=== PATIENT | female | born 1980 | race Caucasian/White ===

== ENCOUNTER 2016-04-09 07:09 | Emergency (ER) | payer OTHER ==
[~2016-04-09] VITALS: Ht 165.1 cm; Wt 126.0 kg
[~2016-04-09 07:09] MED LIST: IBUP800T23 PO; METH750T2 PO
[2016-04-09 07:13] VITALS: BP 122/94; PULSE 104; RESP 16; TEMP 98.1; O2SAT 100
[2016-04-09] MEDS ORDERED: TETANUS/DIPHTHERIA TOXOID ADULT 0.5 ML VIAL IM ONE (07:45)
--- NOTE | 2016-04-09 07:53 | PD ---
HPI Chief Complaint: Laceration/Skin Injury Time Seen by Provider: 07:19 Travel History International Travel<30 days: No Contact w/Intl Traveler<30days: No Traveled to known affect area: No History of Present Illness HPI This patient complains of laceration to her right hand. She accidentally cut it on a knife last night at 11 PM. She comes in this morning for evaluation. The cut is through her hyperthenar eminence. She has normal strength and sensation. Duration is 8 and half hours PFSH Past Medical History Medical History: Denies Significant Hx Diminished Hearing: No Tetanus Vaccination: > 5 Years Influenza Vaccination: No ?: Not LMP: 03/21/16 : 0 Para: 0 Past Surgical History Oral Surgery: Yes (WISDOM TEETH) Social History Alcohol Use: Yes (OCC) Tobacco Use: Yes (1/2 PPD) Substance Use: No Allergies-Medications (Allergen,Severity, Reaction): Coded Allergies: Penicillin (Verified Allergy, Severe, RASH/FACIAL SWELLING, 04/09/16) Sulfa (Verified Allergy, Severe, SWELLING, 04/09/16) SWELLING Reported Meds & Prescriptions Reported Meds & Active Scripts Active No Active Prescriptions or Reported Medications Review of Systems General / Constitutional: No: Fever HENT: No: Headaches Cardiovascular: No: Chest Pain or Discomfort Physical Exam Narrative SKIN: Inspection shows no rash or ulcers. Palpation shows no induration or nodules. Psych: Normal mood and affect. Insight and judgment seems a bit weak as detailed later Right hand: 3 cm laceration to the right hyperthenar eminence. There is some fatty tissue poking through. Normal cap refill and sensation and flexion and extension strength of the digits Data Data Last Documented VS Vital Signs Date Time Temp Pulse Resp B/P Pulse Ox O2 Delivery O2 Flow Rate FiO2 04/09/16 07:33 16 04/09/16 07:13 98.1 104 122/94 100 Orders Tetanus/Diphtheria Tox Adult (Tetanus/Di (04/09/16 07:45) Wound Care (04/09/16 07:33) MDM Medical Decision Making Medical Screen Exam Complete: Yes Emergency Medical Condition: Yes Medical Record Reviewed: Yes Differential Diagnosis Laceration, abrasion, contusion Narrative Course I have reviewed the patient's electronic medical record. I gave this patient a tetanus booster I cleaned her laceration Patient absolutely refuses suturing. I recommended to loosely close it given that it's been open for a half hours already but it is fairly gaping with fat tissue poking through and she absolutely refuses She says she has a fear of needles and despite multiple attempts to convince her she refuses Mother is present at bedside and was trying to get her to agree but she did not succeed either So rather than leave it gaping I have applied Steri-Strips Certainly not ideal but better than nothing I wrote some antibiotics to prevent wound infection Diagnosis Primary Impression: Laceration of hand, right Qualified Code: S61.411A - Laceration of hand, right, initial encounter Patient Instructions: General Instructions Departure Forms: Tests/Procedures Additional Instructions: The patient was advised to follow up with their physician and return if they worsen. The patient was warned about potential sedation for the medications they will receive on prescription. Med/Other Pt SpecificInfo: Prescription(s) given Scripts No Active Prescriptions or Reported Meds Disposition: 01 DISCHARGE HOME Condition: Stable Anson Tiwari MD Apr 09, 2016 07:53
[2016-04-09] MEDS ORDERED: DOXY100C PO (07:55)
== END 2016-04-09 08:05 | disposition home or self-care (01) ==
LOC: PHED 07:09
DX: S61.411A Laceration without foreign body of right hand, initial encounter (principal); F17.200 Nicotine dependence, unspecified, uncomplicated; Z23 Encounter for immunization; W26.0XXA Contact with knife, initial encounter
CPT/HCPCS: 90471; 90714